=== PATIENT | female | born 1935 | race Caucasian/White ===

== ENCOUNTER 2017-12-22 20:03 | Emergency (ER) | payer MEDICARE, OTHER, SELFPAY ==
[2017-12-22 20:09] VITALS: BP 209/115; PULSE 69; RESP 18; TEMP 36.8; O2SAT 96; BMI 14.8
--- NOTE | 2017-12-22 20:26 | CT_ITS ---
CT chest wo con HISTORY: Chest wall pain, pain and swelling posterior aspect of the chest ITS.REASON: pain /swelling ORDERING PHYSICIAN: Jose Benoit MD PATIENT AGE: 82 years Technique: Axial images obtained. Sagittal and coronal reformatted images are also generated and reviewed. All CT scans at the facility use one or more dose reduction, viz: automated exposure control; ma/kV adjustment per patient size (including targeted exams where dose is matched to indication; i.e. head); or iterative reconstruction technique. CONTRAST: None COMPARISON: None FINDINGS: Vascular ectasia noted within the mediastinum with coronary artery calcifications and mild cardiomegaly. No pericardial effusion. No mediastinal or hilar mass. Atelectatic changes are present in the left lung base with small left pleural effusion noted. There are mildly displaced fractures involving the left 11th, 10th, ninth, ribs with a nondisplaced fracture of the left eighth rib posteriorly. There is an old fracture of the left fifth rib. The ninth rib fractures posterior and lateral. The other rib fractures are posterior. No evidence of pneumothorax. There is a subcentimeter isodensity in the hepatic dome nonspecific. IMPRESSION: Left posterior and posterior lateral mildly displaced acute eighth through 11th rib fractures with left basilar atelectasis and small left effusion
--- NOTE | 2017-12-22 20:26 | CT_ITS ---
CT abdomen pelvis wo con CLINICAL INDICATION: Left upper quadrant pain, pain and swelling posterior left upper quadrant ITS.REASON: pain /swelling ORDERING PHYSICIAN: Jose Benoit MD PATIENT AGE: 82 years COMPARISON: None TECHNIQUE: Axial images obtained with sagittal and coronal reformats. All CT scans at the facility use one or more dose reduction, viz: automated exposure control; ma/kV adjustment per patient size (including targeted exams where dose is matched to indication; i.e. head); or iterative reconstruction technique. PROCEDURE: Oral Contrast: None IV Contrast: None . FINDINGS: Lower thorax: Left eighth through 11th rib fractures mildly displaced with small left effusion and left basilar atelectasis. There is a small amount of subcutaneous emphysema posterior to the left 10th rib posterior laterally. Cholelithiasis. 8 mm isodensity hepatic dome nonspecific. No biliary dilatation. The spleen, adrenal glands, and pancreas show no acute finding. No obstructing renal or ureteral calculi. Subcentimeter hyperdensity upper pole left kidney which may be due to a hyperdense cyst. Moderate amount retained colonic feces throughout the colon. Sigmoid diverticulosis without diverticulitis. No intestinal obstruction or free air. No evidence of appendicitis. Prior hysterectomy. No pelvic mass or abnormal fluid collection. IMPRESSION: 1. Left eighth through 11th rib fractures with atelectasis and small effusion. 2. Cholelithiasis. 3. Constipation 4. No acute intra-abdominal pathology apparent
--- NOTE | 2017-12-22 20:26 | XR_ITS ---
XR chest AP HISTORY: Chest pain ITS.REASON: pain ORDERING PHYSICIAN: Jose Benoit MD PATIENT AGE: 82 years COMPARISON: None available FINDINGS: Unremarkable heart size. There are 2 surgical clips over the lower thorax centrally. Skin fold artifact is noted on the right. No lobar consolidation or collapse. There are degenerative changes in the shoulders. IMPRESSION: No acute findings
--- NOTE | 2017-12-22 20:26 | XR_ITS ---
XR pelvis 1-2V HISTORY: ITS.REASON: pain ORDERING PHYSICIAN: Jose Benoit MD PATIENT AGE: 82 years COMPARISON: None FINDINGS: No acute fracture or dislocation evident. There are mild degenerative changes within the hips with some cortical irregularity of the femoral head on the right laterally and may be related to overlying osteophyte formation. IMPRESSION: No definite acute finding
[2017-12-22 20:51] LABS: Basophils % 0.3 % (0.1-2.0); Eosinophils # 0.1 K/mm3 (0.0-0.4); Eosinophils % 0.8 % (0.1-12.0); Hematocrit 43.4 % (37.0-47.0); Hemoglobin 13.7 g/dL (12.2-16.2); Lymphocytes # 1.4 K/mm3 (0.7-4.5); Lymphocytes % 15.7 K/mm3 (10-50); Mean Corpuscular HGB Conc 31.6 g/dL (31.8-35.4); Mean Corpuscular Hemoglobin 29.9 pg (27.0-31.2); Mean Corpuscular Volume 94.6 fl (81-99); Mean Platelet Volume 6.9 fl (7.4-10.4); Monocytes # 0.7 K/mm3 (0.1-1.0); Monocytes % 7.8 % (1.7-9.3); Neutrophils # 6.5 K/mm3 (1.8-7.8); Neutrophils % 75.4 % (37.0-80.0); Platelet Count 317 K/mm3 (142-424); Red Blood Count 4.59 M/mm3 (4.20-5.40); Red Cell Distribution Width 12.6 % (11.5-17.5); White Blood Count 8.6 K/mm3 (4.8-10.8)
[2017-12-22 20:59] LABS: Anion Gap 9.9 mEq/L (5-15); Blood Urea Nitrogen 12 mg/dL (7-18); Carbon Dioxide 34 mmol/L (21.0-32.0); Chloride 101 mmol/L (98-107); Creatinine Clearance Estimated 26 mL/min (0-300); Creatinine,Serum 0.72 mg/dL (0.55-1.02); Estimated Glomerular Filt Rate 77 ml/min (>60); GFR (African American) 94 ML/MIN (>60); Glucose 133 mg/dL (74-106); Potassium 3.9 mmoL/L (3.5-5.1); Sodium 141 mmol/L (136-145)
[2017-12-22 21:00] LABS: Activated Partial Thrombo Time 24.9 seconds (23.6-34.0); Prothrombin Time 10.8 seconds (9.4-11.8)
--- NOTE | 2017-12-22 21:17 | [facility].EDFALL ---
ED Disposition Clinical Impression: Ribs, multiple fractures Qualifiers: Encounter type: initial encounter Fracture type: closed Laterality: left Qualified Code(s): S22.42XA - Multiple fractures of ribs, left side, initial encounter for closed fracture Disposition: Home, Self-Care Condition on Discharge: Good Instructions: DI for Rib Fracture Additional Instructions: hold eliquis for 3 days and see pcp for follow up - Critical Care Critical Care Time: No Attestation: On 12/22/17, the high probability of a clinically significant, sudden or life threatening deterioration of the following system(s) required my full and direct attention, intervention and personal management. The time I documented below is in addition to time spent performing reported procedures but includes the following listed in this critical care notation. Medical Decision Making - Medical Records Medical records reviewed: Yes: I reviewed the patient's medical records. - Serjio Inquiry Pt receiving controlled substance: No Vital Signs: 12/22/17 20:09 Temperature 98.3 F Temperature Source Temporal Artery Scan Pulse Rate [Left Radial] 69 Respiratory Rate 18 Blood Pressure [Right Arm] 209/115 Blood Pressure Mean [Right Arm] 146 Blood Pressure Source [Right Arm] Automatic Cuff Blood Pressure Position [Right Arm] Sitting 02 Sat by Pulse Oximetry 96 Oxygen Delivery Method Room Air - Lab Data Lab results reviewed: Yes: I reviewed the patient's lab results. Lab Results 12/22/17 20:40: WBC 8.6, RBC 4.59, Hgb 13.7, Hct 43.4, MCV 94.6, MCH 29.9, MCHC 31.6 L, RDW 12.6, Plt Count 317, MPV 6.9 L, Neut % (Auto) 75.4, Lymph % (Auto) 15.7, [place] % (Auto) 7.8, Eos % (Auto) 0.8, Baso % (Auto) 0.3, Neut # (Auto) 6.5, Lymph # (Auto) 1.4, [place] # (Auto) 0.7, Eos # (Auto) 0.1, Baso # (Auto) 0.0 12/22/17 20:40: PT 10.8, INR 1.00, APTT 24.9 12/22/17 20:40: Sodium 141, Potassium 3.9, Chloride 101, Carbon Dioxide 34 H, Anion Gap 9.9, BUN 12, Creatinine 0.72, Estimated Creat Clear 26, Estimated GFR 77, Est GFR ( Amer) 94, Glucose 133 H Result diagrams: 12/22/17 20:40 12/22/17 20:40 Orders (Tests/Meds): ORDERS Category Date Time Status CT abdomen pelvis wo con Stat Cat Scan 12/22/17 20:[address] chest wo con Stat Cat Scan 12/22/17 20:26 Taken XR chest AP Stat Exams 12/22/17 20:26 Taken XR pelvis 1-2V Stat Exams 12/22/17 20:26 Taken - Radiology Data #1 Image(s): Chest, Pelvis Image Reviewed: Yes I reviewed the patient's radiology image Preliminary Findings: Abnormal (fx rib) - CT Data CT Scan: Abdomen, Pelvis, Chest Time Received: 22:[address] Reviewed: Yes: I have viewed the radiologist's interpretation Preliminary Findings: Abnormal (rib fx ) Fall HPI - General Chief Complaint: Fall Stated Complaint: AO 12/20/17 09:30 fell injury to left side of back Time Seen by Provider: 12/22/17 20:15 Mode of Arrival: Ambulatory Source of Information: Patient, Relative, Medical Record Limitations: No Limitations Description of Symptoms (Recalled from ER Triage Doc. by RN): fell into dresser on saturday, left back and flank pain since with purple bruising, visiting from [place] - History of Present Illness HPI Narrative: pt with family member had fall at home with lt rib injury and post chest - no loc or head or neck injury - has local swelling - no abd pain - has a fib on blood thinner MD complaint: fall Onset (ago): day(s) Fall from: standing Fall witnessed: yes, by family Place fall occurred: home Loss of consciousness: none Prolonged down time: no Context: tripped/slipped Location of injury: chest, back Severity: moderate - Related Data Home Medications Medication Instructions Recorded Confirmed Apixaban [Eliquis] 1 tab PO DAILY 12/22/17 12/22/17 Levothyroxine Sodium 1 tab PO DAILY 12/22/17 12/22/17 [Levothyroxine 75mcg (0.075mg) Tab] Memantine HCl [Memantine HCl] 1 tab PO DAILY 12/22/17 12/22/17 Mirabegron [M
--- NOTE | 2017-12-22 21:23 | PC.NURSE ---
returned from xray
[2017-12-22 22:24] VITALS: BP 175/65; PULSE 89; RESP 16; TEMP 36.9; O2SAT 94
== END 2017-12-22 22:26 | disposition home or self-care (01) ==
PROVIDERS: Emergency Provider Emergency Medicine
DX: S22.42XA Multiple fractures of ribs, left side, initial encounter for closed fracture (principal); W01.0XXA Fall on same level from slipping, tripping and stumbling without subsequent striking against object, initial encounter; Y92.019 Unspecified place in single-family (private) house as the place of occurrence of the external cause; Z79.899 Other long term (current) drug therapy
CPT/HCPCS: 71045; 71250; 72170; 74176; 80048; 85025; 85610; 85730; 99283

== ENCOUNTER → 2020-12-20 16:53 | Outpatient (CLI) | payer MEDICARE, OTHER, SELFPAY | PROVIDERS: Visit Provider Urology | DX: N39.0 Urinary tract infection, site not specified (principal) | CPT/HCPCS: 87086; 87088; 87186 ==